=== PATIENT | male | born 1980 | race Caucasian/White ===

== ENCOUNTER 2023-10-06 00:31 | Emergency (ER) | payer BC ==
[~2023-10-06] VITALS: Ht 188 cm; Wt 97.7 kg
[2023-10-06] MEDS ORDERED: ZESTRIL10 M1 PO (00:46)
[2023-10-06 01:27] LABS: BASO # 0.06 K/mm3 (0.02-0.10); EOS # 0.51 K/mm3 (0.04-0.40); EOS % 4.7 % (0.0-4.0); HEMATOCRIT 43.5 % (42.0-52.0); HEMOGLOBIN 15.1 g/dL (13.5-18.0); LYMPH# 3.41 K/mm3 (1.50-4.00); MEAN CELL VOLUME 95 fl (78-100); MEAN CORPUSCULAR HEMOGLOBIN 33 pg (27-31); MEAN CORPUSCULAR HGB CONC 35 g/dL (33-37); MEAN PLATELET VOLUME 9.4 fl (7.4-10.4); MONO # 0.78 K/mm3 (0.20-0.80); PLATELET COUNT 304 K/mm3 (130-400); RED CELL DISTRIBUTION WIDTH 11.8 % (11.5-14.5); WHITE BLOOD COUNT 10.8 K/mm3 (4.8-10.8)
[2023-10-06] MEDS ORDERED: NS 1,000 ML IV ONE (01:30)
[2023-10-06 01:35] LABS: ALBUMIN 4.5 g/dL (3.5-5.0)
[2023-10-06 01:36] LABS: CALCIUM 9.6 mg/dL (8.3-10.5)
[2023-10-06 01:37] LABS: TOTAL PROTEIN 6.8 g/dL (6.4-8.3)
[2023-10-06 01:39] LABS: TOTAL BILIRUBIN 0.7 mg/dL (0.2-1.2)
[2023-10-06] MEDS ORDERED: Iohexol 300 - 100 ML VIAL IV ONE (02:10)
[2023-10-06 03:15] LABS: URINE APPEARANCE TURBID (CLEAR); URINE BILIRUBIN NEGATIVE (NEGATIVE); URINE BLOOD 3+ (NEGATIVE); URINE COLOR RED (YELLOW); URINE GLUCOSE NEGATIVE (NEGATIVE); URINE KETONE NEGATIVE (NEGATIVE); URINE NITRATE NEGATIVE (NEGATIVE); URINE PROTEIN(semi-quant) 3+ (NEGATIVE)
[2023-10-06] MEDS ORDERED: oxyCODONE/Acetaminophen 10-325 MG TAB PO ONE (04:00)
[2023-10-06] MEDS ORDERED: Home HYDROcodone/Acetaminophen 5/325 MG #4 TABS/PACK PO ONE (04:00)
[2023-10-06 04:06] VITALS: BP 118/66
[2023-10-07] MEDS ORDERED: CEPHALEXIN500 M1 PO (07:31)
== END 2023-10-06 04:07 | disposition home or self-care (01) ==
LOC: ED 00:31
PROVIDERS: Family Medicine
DX: S37.30XA Unspecified injury of urethra, initial encounter (principal); E66.9 Obesity, unspecified; Z68.27 Body mass index [BMI] 27.0-27.9, adult; X58.XXXA Exposure to other specified factors, initial encounter
CPT/HCPCS: J7030; Q9967

== ENCOUNTER 2023-10-06 23:08 | Emergency (ER) | payer BC ==
[~2023-10-06] VITALS: Ht 188 cm; Wt 97.7 kg
[~2023-10-06 23:08] MED LIST: ZESTRIL10 M1 PO
[2023-10-06 23:41] LABS: BASO # 0.02 K/mm3 (0.02-0.10); EOS # 0.04 K/mm3 (0.04-0.40); EOS % 0.7 % (0.0-4.0); HEMATOCRIT 40.5 % (42.0-52.0); HEMOGLOBIN 14.4 g/dL (13.5-18.0); LYMPH# 0.65 K/mm3 (1.50-4.00); MEAN CELL VOLUME 94 fl (78-100); MEAN CORPUSCULAR HEMOGLOBIN 34 pg (27-31); MEAN CORPUSCULAR HGB CONC 36 g/dL (33-37); MEAN PLATELET VOLUME 9.4 fl (7.4-10.4); MONO # 0.03 K/mm3 (0.20-0.80); NEU # 4.99 K/mm3 (1.40-6.50); PLATELET COUNT 258 K/mm3 (130-400); RED BLOOD COUNT 4.29 M/mm3 (4.20-5.60); RED CELL DISTRIBUTION WIDTH 11.9 % (11.5-14.5); WHITE BLOOD COUNT 5.7 K/mm3 (4.8-10.8)
[2023-10-06] MEDS ORDERED: NS 1,000 ML IV SCH (23:45)
[2023-10-06 23:52] LABS: ALBUMIN 4.1 g/dL (3.5-5.0)
[2023-10-06 23:54] LABS: CALCIUM 9.2 mg/dL (8.3-10.5)
[2023-10-06 23:55] LABS: TOTAL PROTEIN 6.2 g/dL (6.4-8.3)
[2023-10-06 23:57] LABS: TOTAL BILIRUBIN 0.7 mg/dL (0.2-1.2)
[2023-10-07] MEDS ORDERED: NS 1,000 ML IV SCH ×2 (01:00→06:45)
[2023-10-07] MEDS ORDERED: cefTRIAXone 1 G in Water For Injection,Sterile 10 ML IV ONE (01:00)
[2023-10-07] MEDS ORDERED: fentaNYL 100 MCG/2 ML VIAL IV PRN (01:15)
[2023-10-07 01:37] LABS: PH-URINE 5.5 (5.0 - 8.0); URINE APPEARANCE TURBID (CLEAR); URINE BILIRUBIN 2+ (NEGATIVE); URINE BLOOD 3+ (NEGATIVE); URINE COLOR BROWN (YELLOW); URINE GLUCOSE NEGATIVE (NEGATIVE); URINE KETONE TRACE (NEGATIVE); URINE NITRATE POSITIVE (NEGATIVE); URINE PROTEIN(semi-quant) 3+ (NEGATIVE)
[2023-10-07 01:38] LABS: URINE LEUKOCYTE ESTERASE NEGATIVE (NEGATIVE); URINE WBC 0-1 /hpf (0-3)
[2023-10-07] MEDS ORDERED: Acetaminophen 500 MG TAB PO ONE (02:15)
[2023-10-07 07:20] VITALS: BP 110/59
[2023-10-07] MEDS ORDERED: CEPHALEXIN500 M1 PO (07:31)
[2023-10-07] MEDS ORDERED: Cephalexin 500 MG CAP PO ONE (07:45)
== END 2023-10-07 08:37 | disposition home or self-care (01) ==
LOC: ED 23:08
PROVIDERS: Family Medicine; Nurse Practitioner
DX: S37.30XA Unspecified injury of urethra, initial encounter (principal); N39.0 Urinary tract infection, site not specified; E66.9 Obesity, unspecified; Z68.27 Body mass index [BMI] 27.0-27.9, adult; X58.XXXA Exposure to other specified factors, initial encounter
CPT/HCPCS: J0696; J3010; J7030